=== PATIENT | female | born 1950 | race African-American/Black ===

== ENCOUNTER 2018-10-11 04:56 | Inpatient (IN) ==
[2018-10-11] MEDS ORDERED: NITROGLYCERIN 2% OINT 1 INCH/GM PACK TOP STA (05:13)
[2018-10-11] MEDS ORDERED: ONDANSETRON 4 MG/2 ML VIAL IV STA (05:13)
[2018-10-11] MEDS ORDERED: MORPHINE 4 MG/1 ML VIAL IV STA (05:13)
[2018-10-11] MEDS ORDERED: ASPIRIN 325 MG TABLET PO STA (05:13)
[2018-10-11 05:22] LABS: Basophils % 0.5 % (0.0-0.8); Eosinophils # 0.2 10*3/uL (0.0-0.87); Eosinophils % 2.9 % (0.00-10.9); Hematocrit 34.5 VOL% (35.7-47.0); Immature Granulocytes % 0.3 %; Immature Granulocytes Absolute 0.02 #; Lymphocytes # 1.4 10*3/uL (1.4-4.0); Lymphocytes % 23.3 % (21.3-54.2); Mean Corpuscular HGB Conc 31.9 GM/DL (32-36); Mean Corpuscular Hemoglobin 29 PG (27-34); Mean Corpuscular Volume 92.2 FL (87-102); Mean Platelet Volume 10.2 FL (9.6-12.0); Monocytes # 0.5 10*3/uL (0.11-0.8); Monocytes % 7.8 % (1.7-12.7); Neutrophils % 65.2 % (38.7-73.9); Platelet Count 170 T/CUMM (130-400); Red Blood Count 3.74 MC/CUMM (3.8-5.5); Red Cell Distribution Width 15.1 % (9.3-17.3); White Blood Count 6.1 T/CUMM (4-12)
[2018-10-11 05:36] LABS: INR 1.1; Partial Thromboplastin Time 29.2 SECS (0-40)
[2018-10-11] MEDS ORDERED: FUROSEMIDE 40 MG/4 ML VIAL IV STA (05:38)
[2018-10-11 05:42] LABS: INR 1.1
[2018-10-11 05:49] LABS: Albumin 2.8 G/DL (3.4-5.0); Bilirubin,Total 0.8 MG/DL (0.2-1.0); Calcium 8.1 MG/DL (8.5-10.1); Osmolality,Calculated 285.1 MOS/KG (273-304); Potassium 3.8 MMOL/L (3.5-5.1); Total Protein 6.7 G/DL (6.4-8.3)
[2018-10-11] MEDS ORDERED: ENOXAPARIN 100 MG/ML SYRINGE SUBCUT STA (05:50)
[2018-10-11] MEDS ORDERED: ENOXAPARIN 30 MG/0.3 ML SYRINGE ONE (06:22)
[2018-10-11] MEDS ORDERED: POTASSIUM CHLORIDE 20 MEQ TABLET PO PRN (09:20)
[2018-10-11] MEDS ORDERED: MAGNESIUM SULF RIDER 2 GM in PREMIX 1 EACH IV PRN (09:20)
[2018-10-11] MEDS ORDERED: DEXTROSE 50% 25 GM/50 ML SYRINGE IV PRN (09:20)
[2018-10-11] MEDS ORDERED: GLUCAGON 1 MG VIAL IM PRN (09:20)
[2018-10-11] MEDS ORDERED: MORPHINE 4 MG/1 ML VIAL IV PRN (09:20)
[2018-10-11] MEDS ORDERED: ONDANSETRON 4 MG/2 ML VIAL IV PRN (09:20)
[2018-10-11] MEDS ORDERED: MAGNESIUM SULF RIDER 4 GM in PREMIX 1 EACH IV PRN (09:20)
[2018-10-11] MEDS ORDERED: SODIUM CHLORIDE 0.9% 1,000 ML IV SCH (09:20)
[2018-10-11] MEDS: ASPIRIN EC 325 MG TABLET PO SCH (10:25)
[2018-10-11] MEDS: ENOXAPARIN 150 MG/ML SYRINGE SUBCUT SCH ×2 (10:25→20:48)
[2018-10-11] MEDS: INSULIN REGULAR 100 UNIT/ML SUBCUT SCH ×4 (12:13→20:32)
[2018-10-11] MEDS: NITROGLYCERIN 2% OINT 1 INCH/GM PACK TOP SCH ×3 (12:19→18:00)
[2018-10-11] MEDS: PANTOPRAZOLE 40 MG TABLET PO SCH (15:14)
[2018-10-11] MEDS: ASCORBIC ACID 500 MG TABLET PO SCH ×2 (15:14→20:48)
[2018-10-11] MEDS: CLINDAMYCIN 300 MG CAPSULE PO SCH ×2 (15:14→20:48)
[2018-10-11] MEDS: METOPROLOL SUCCINATE XL 50 MG TABLET PO SCH (22:33)
[2018-10-12] MEDS: NITROGLYCERIN 2% OINT 1 INCH/GM PACK TOP SCH ×4 (01:59→17:57)
[2018-10-12 05:27] LABS: Basophils % 0.4 % (0.0-0.8); Eosinophils # 0.2 10*3/uL (0.0-0.87); Eosinophils % 3.8 % (0.00-10.9); Hematocrit 33.8 VOL% (35.7-47.0); Hemoglobin 10.5 GM/DL (12.0-16.0); Immature Granulocytes % 0.2 %; Immature Granulocytes Absolute 0.01 #; Lymphocytes # 1.7 10*3/uL (1.4-4.0); Lymphocytes % 33.6 % (21.3-54.2); Mean Corpuscular HGB Conc 31.1 GM/DL (32-36); Mean Corpuscular Hemoglobin 29 PG (27-34); Mean Corpuscular Volume 92.6 FL (87-102); Mean Platelet Volume 10.6 FL (9.6-12.0); Monocytes # 0.6 10*3/uL (0.11-0.8); Monocytes % 11.1 % (1.7-12.7); Neutrophils # 2.5 10*3/uL (1.4-7.4); Neutrophils % 50.9 % (38.7-73.9); Platelet Count 162 T/CUMM (130-400); Red Blood Count 3.65 MC/CUMM (3.8-5.5); Red Cell Distribution Width 15.3 % (9.3-17.3)
[2018-10-12 05:53] LABS: Calcium 8.5 MG/DL (8.5-10.1); Osmolality,Calculated 285.8 MOS/KG (273-304); Potassium 3.9 MMOL/L (3.5-5.1)
[2018-10-12] MEDS ORDERED: SODIUM CHLORIDE 0.45% 1,000 ML IV SCH (06:00)
[2018-10-12 06:02] LABS: Albumin 2.6 G/DL (3.4-5.0); Calcium 8.3 MG/DL (8.5-10.1); Osmolality,Calculated 286.8 MOS/KG (273-304); Potassium 3.8 MMOL/L (3.5-5.1); Risk Ratio 1.76; Thyroid Stimulating Hormone 0.633 uIU/ml (0.358-3.74); Total Protein 5.9 G/DL (6.4-8.3); VLDL CHOLESTEROL 5.6 MG/DL
[2018-10-12] MEDS: INSULIN REGULAR 100 UNIT/ML SUBCUT SCH ×4 (08:37→21:23)
[2018-10-12] MEDS: PANTOPRAZOLE 40 MG TABLET PO SCH (13:27)
[2018-10-12] MEDS: ATORVASTATIN 40 MG TABLET PO SCH (13:27)
[2018-10-12] MEDS: ASCORBIC ACID 500 MG TABLET PO SCH ×2 (13:28→21:23)
[2018-10-12] MEDS: ASPIRIN EC 325 MG TABLET PO SCH (13:29)
[2018-10-12] MEDS: LOSARTAN 25 MG TABLET PO SCH (13:29)
[2018-10-12] MEDS: CLINDAMYCIN 300 MG CAPSULE PO SCH ×3 (13:29→21:23)
[2018-10-12] MEDS ORDERED: LIDOCAINE 1% 20 ML VIAL ONE (13:43)
[2018-10-12] MEDS ORDERED: HEPARIN/NACL 0.9% 2 UNITS/ML 1,000 ML IV ONE (13:43)
[2018-10-12] MEDS ORDERED: DIAZEPAM 5 MG TABLET PO ONE (14:00)
[2018-10-12] MEDS ORDERED: diphenhydrAMINE CAP 25 MG CAPSULE PO ONE (14:00)
[2018-10-12] MEDS ORDERED: VERAPAMIL 5 MG/2 ML VIAL ONE (14:07)
[2018-10-12] MEDS ORDERED: NITROGLYCERIN DRIP 50 MG/250 ML BOTTLE IV ONE (14:07)
[2018-10-12] MEDS ORDERED: fentaNYL 100 MCG/2 ML VIAL ONE (14:15)
[2018-10-12] MEDS ORDERED: MIDAZOLAM 2 MG/2 ML VIAL ONE (14:15)
[2018-10-12] MEDS ORDERED: ENOXAPARIN 60 MG/0.6 ML SYRINGE ONE (14:21)
[2018-10-12] MEDS: METOPROLOL SUCCINATE XL 50 MG TABLET PO SCH (21:23)
[2018-10-13 04:01] LABS: Basophils % 0.4 % (0.0-0.8); Eosinophils # 0.2 10*3/uL (0.0-0.87); Eosinophils % 4.3 % (0.00-10.9); Hematocrit 36.6 VOL% (35.7-47.0); Hemoglobin 11.4 GM/DL (12.0-16.0); Immature Granulocytes % 0.2 %; Immature Granulocytes Absolute 0.01 #; Lymphocytes # 1.7 10*3/uL (1.4-4.0); Lymphocytes % 29.3 % (21.3-54.2); Mean Corpuscular HGB Conc 31.1 GM/DL (32-36); Mean Corpuscular Hemoglobin 29 PG (27-34); Mean Corpuscular Volume 92.4 FL (87-102); Mean Platelet Volume 10.4 FL (9.6-12.0); Monocytes # 0.5 10*3/uL (0.11-0.8); Monocytes % 8.3 % (1.7-12.7); Neutrophils # 3.2 10*3/uL (1.4-7.4); Neutrophils % 57.5 % (38.7-73.9); Platelet Count 179 T/CUMM (130-400); Red Blood Count 3.96 MC/CUMM (3.8-5.5); Red Cell Distribution Width 15.3 % (9.3-17.3); White Blood Count 5.6 T/CUMM (4-12)
[2018-10-13 04:28] LABS: Calcium 8.8 MG/DL (8.5-10.1); Osmolality,Calculated 280.3 MOS/KG (273-304); Potassium 3.9 MMOL/L (3.5-5.1)
[2018-10-13] MEDS ORDERED: ASPIRIN 325 MG TABLET PO ONE (05:31)
[2018-10-13] MEDS ORDERED: ALUM/MAG/SIMETH/LIDO VISC 1:1 30 ML BOTTLE PO ONE (05:31)
[2018-10-13] MEDS ORDERED: NITROGLYCERIN SL 0.4 MG TABLET SL ONE ×2 (05:36→05:54)
[2018-10-13] MEDS: NITROGLYCERIN 2% OINT 1 INCH/GM PACK TOP SCH ×2 (06:18)
[2018-10-13] MEDS: INSULIN REGULAR 100 UNIT/ML SUBCUT SCH ×4 (07:24→21:05)
[2018-10-13] MEDS: ASPIRIN EC 325 MG TABLET PO SCH (09:30)
[2018-10-13] MEDS: ATORVASTATIN 40 MG TABLET PO SCH (10:48)
[2018-10-13] MEDS: CLOPIDOGREL 75 MG TABLET PO SCH (10:48)
[2018-10-13] MEDS: ASCORBIC ACID 500 MG TABLET PO SCH ×2 (10:48→21:04)
[2018-10-13] MEDS: LOSARTAN 25 MG TABLET PO SCH (10:48)
[2018-10-13] MEDS: CLINDAMYCIN 300 MG CAPSULE PO SCH ×3 (10:48→21:04)
[2018-10-13] MEDS: PANTOPRAZOLE 40 MG TABLET PO SCH (10:49)
[2018-10-13] MEDS: ISOSORBIDE MONONITRATE 30 MG TABLET PO SCH (10:49)
[2018-10-13] MEDS ORDERED: RIVAROXABAN 10 MG TABLET PO SCH (17:00)
[2018-10-13] MEDS: METOPROLOL SUCCINATE XL 50 MG TABLET PO SCH (21:04)
[2018-10-14] MEDS ORDERED: ALUMINUM/MAGNES/SIMETH MAX STR 30 ML UDCUP PO PRN (00:06)
[2018-10-14 04:29] LABS: Basophils % 0.2 % (0.0-0.8); Eosinophils # 0.2 10*3/uL (0.0-0.87); Eosinophils % 4.1 % (0.00-10.9); Hematocrit 31.6 VOL% (35.7-47.0); Hemoglobin 9.9 GM/DL (12.0-16.0); Immature Granulocytes % 0.2 %; Immature Granulocytes Absolute 0.01 #; Lymphocytes # 1.3 10*3/uL (1.4-4.0); Lymphocytes % 22.7 % (21.3-54.2); Mean Corpuscular HGB Conc 31.3 GM/DL (32-36); Mean Corpuscular Hemoglobin 29 PG (27-34); Mean Corpuscular Volume 92.7 FL (87-102); Mean Platelet Volume 10.7 FL (9.6-12.0); Monocytes # 0.6 10*3/uL (0.11-0.8); Monocytes % 9.3 % (1.7-12.7); Neutrophils # 3.8 10*3/uL (1.4-7.4); Neutrophils % 63.5 % (38.7-73.9); Platelet Count 154 T/CUMM (130-400); Red Blood Count 3.41 MC/CUMM (3.8-5.5); Red Cell Distribution Width 15.5 % (9.3-17.3); White Blood Count 5.9 T/CUMM (4-12)
[2018-10-14 05:29] LABS: Calcium 8.3 MG/DL (8.5-10.1); Osmolality,Calculated 284.1 MOS/KG (273-304)
[2018-10-14] MEDS: INSULIN REGULAR 100 UNIT/ML SUBCUT SCH ×4 (07:56→21:37)
[2018-10-14] MEDS ORDERED: METFORMIN HCL 250 MG PO SCH (09:00)
[2018-10-14] MEDS: LOSARTAN 25 MG TABLET PO SCH (09:18)
[2018-10-14] MEDS: ATORVASTATIN 40 MG TABLET PO SCH (09:18)
[2018-10-14] MEDS: ASCORBIC ACID 500 MG TABLET PO SCH ×2 (09:18→21:37)
[2018-10-14] MEDS: CLOPIDOGREL 75 MG TABLET PO SCH (09:18)
[2018-10-14] MEDS: PANTOPRAZOLE 40 MG TABLET PO SCH (09:18)
[2018-10-14] MEDS: ASPIRIN EC 81 MG TABLET PO SCH (09:18)
[2018-10-14] MEDS: RIVAROXABAN 20 MG TABLET PO SCH (09:18)
[2018-10-14] MEDS: ISOSORBIDE MONONITRATE 30 MG TABLET PO SCH (09:18)
[2018-10-14] MEDS: CLINDAMYCIN 300 MG CAPSULE PO SCH ×3 (09:18→21:37)
[2018-10-14] MEDS ORDERED: ACETAMINOPHEN 325 MG TABLET PO PRN (13:32)
[2018-10-14] MEDS: METOPROLOL SUCCINATE XL 50 MG TABLET PO SCH (21:37)
[2018-10-15 04:06] LABS: Basophils % 0.3 % (0.0-0.8); Eosinophils # 0.3 10*3/uL (0.0-0.87); Eosinophils % 5.2 % (0.00-10.9); Hematocrit 31.5 VOL% (35.7-47.0); Hemoglobin 9.9 GM/DL (12.0-16.0); Immature Granulocytes % 0.2 %; Immature Granulocytes Absolute 0.01 #; Lymphocytes # 1.7 10*3/uL (1.4-4.0); Lymphocytes % 29.7 % (21.3-54.2); Mean Corpuscular HGB Conc 31.4 GM/DL (32-36); Mean Corpuscular Hemoglobin 29 PG (27-34); Mean Corpuscular Volume 92.9 FL (87-102); Mean Platelet Volume 10.8 FL (9.6-12.0); Monocytes # 0.6 10*3/uL (0.11-0.8); Neutrophils # 3.1 10*3/uL (1.4-7.4); Neutrophils % 53.6 % (38.7-73.9); Platelet Count 150 T/CUMM (130-400); Red Blood Count 3.39 MC/CUMM (3.8-5.5); Red Cell Distribution Width 15.4 % (9.3-17.3); White Blood Count 5.8 T/CUMM (4-12)
[2018-10-15 04:45] LABS: Calcium 8.1 MG/DL (8.5-10.1); Potassium 4.1 MMOL/L (3.5-5.1)
[2018-10-15] MEDS: INSULIN REGULAR 100 UNIT/ML SUBCUT SCH ×2 (07:29→11:45)
[2018-10-15 08:10] VITALS: BP 127/50
[2018-10-15] MEDS: CLOPIDOGREL 75 MG TABLET PO SCH (09:16)
[2018-10-15] MEDS: ASCORBIC ACID 500 MG TABLET PO SCH (09:16)
[2018-10-15] MEDS: CLINDAMYCIN 300 MG CAPSULE PO SCH (09:17)
[2018-10-15] MEDS: ISOSORBIDE MONONITRATE 30 MG TABLET PO SCH (09:17)
[2018-10-15] MEDS: RIVAROXABAN 20 MG TABLET PO SCH (09:17)
[2018-10-15] MEDS: ATORVASTATIN 40 MG TABLET PO SCH (09:17)
[2018-10-15] MEDS: LOSARTAN 25 MG TABLET PO SCH (09:17)
[2018-10-15] MEDS: PANTOPRAZOLE 40 MG TABLET PO SCH (09:17)
[2018-10-15] MEDS: ASPIRIN EC 81 MG TABLET PO SCH (09:17)
== END 2018-10-15 13:05 | disposition home or self-care (01) | DRG 281 ==
LOC: N.ED 04:56 → N.EDINP 05:54 → INTOOBSV 05:54 → OBSVTOIN 05:54 → N.TELEN 06:50
PROVIDERS: ADMIT Internal Medicine Interventional Cardiology; ATTEND Internal Medicine Interventional Cardiology
PROC: CLCCHCL (ICD-10-PCS; 2018-10-12 15:15)